=== PATIENT | female | born 1950 ===

== ENCOUNTER 2017-10-24 23:58 | Emergency (ER) | payer MEDICARE, SELFPAY ==
[2017-10-25 00:06] VITALS: BMI 25.7
[2017-10-25 00:19] VITALS: RESP 18
--- NOTE | 2017-10-25 00:23 | ED PDOC ---
Arrival/HPI - General Chief Complaint: Shortness Of Breath Time Seen by Provider: 10/25/17 00:16 Historian: Patient - History of Present Illness Narrative History of Present Illness (Text): 10/25/17 00:23 Christelle Pearson is a 67 year old female, with no significant past medical history , who presents to the Emergency department accompanied by relative complaining of shortness of breath and dry cough. Patient states, as per relative acting as [employer]oured [employer] officer, she has been experiencing shortness of breath with associated dry cough, bilateral rib/chest discomfort secondary to coughing, and headache. Patient notes a subjective fever and states she took cough syrup at home with no significant relief. Patient denies any abdominal pain, nausea, vomiting, diarrhea, urinary symptoms, back pain, neck pain, dizziness, or any other complaints. Symptom Onset: Gradual Symptom Course: Unchanged Activities at Onset: Light Context: Home Past Medical History - Provider Review Nursing Documentation Reviewed: Yes - Past Medical History Past Medical History: No Previous - Psychiatric Hx Depression: No Hx Emotional Abuse: No Hx Physical Abuse: No Hx Substance Use: No - Surgical History Hx Hysterectomy: Yes - Suicidal Assessment Feels Threatened In Home Enviroment: No Family/Social History - Physician Review Nursing Documentation Reviewed: Yes Family/Social History: Unknown Family HX Hx Alcohol Use: No Hx Substance Use: No Hx Substance Use Treatment: No Allergies/Home Meds Allergies/Adverse Reactions: Allergies No Known Allergies Allergy (Verified 04/22/12 11:11) Review of Systems - Physician Review All systems were reviewed & negative as marked: Yes - Review of Systems Constitutional: Fevers (+subjective fever) Eyes: Normal ENT: Normal Respiratory: SOB, Cough Cardiovascular: Chest Pain (+bilateral rib/chest discomfort) Gastrointestinal: Normal. absent: Abdominal Pain, Diarrhea, Nausea, Vomiting Genitourinary Female: Normal. absent: Dysuria, Frequency, Hematuria, Urine Output Changes Musculoskeletal: Normal. absent: Back Pain, Neck Pain Skin: Normal. absent: Rash Neurological: Headache. absent: Dizziness Endocrine: Normal Hemo/Lymphatic: Normal Psychiatric: Normal Physical Exam Vital Signs Reviewed: Yes Vital Signs Temp Pulse Resp BP Pulse Ox 10/25/17 04:10 98.7 F 85 18 121/79 100 10/25/17 00:17 99.4 F 84 18 110/76 97 10/25/17 00:15 18 98 Temperature: Afebrile Blood Pressure: Normal Pulse: Regular Respiratory Rate: Normal Appearance: Positive for: Well-Appearing, Non-Toxic, Comfortable Pain Distress: None Mental Status: Positive for: Alert and Oriented X 3 - Systems Exam Head: Present: Atraumatic, Normocephalic Pupils: Present: PERRL Extroacular Muscles: Present: EOMI Conjunctiva: Present: Normal Mouth: Present: Moist Mucous Membranes Neck: Present: Normal Range of Motion Respiratory/Chest: Present: Clear to Auscultation, Good Air Exchange. No: Respiratory Distress, Accessory Muscle Use Cardiovascular: Present: Regular Rate and Rhythm, Normal S1, S2. No: Murmurs Abdomen: No: Tenderness, Distention, Peritoneal Signs Back: Present: Normal Inspection Upper Extremity: Present: Normal Inspection. No: Cyanosis, Edema Lower Extremity: Present: Normal Inspection. No: Edema Neurological: Present: GCS=15, CN II-XII Intact, Speech Normal Skin: Present: Warm, Dry, Normal Color. No: Rashes Psychiatric: Present: Alert, Oriented x 3, Normal Insight, Normal Concentration Medical Decision Making ED Course and Treatment: 10/25/17 00:23 Impression: 67 year old female c/o shortness of breath, dry cough, bilateral rib/chest discomfort, headache, and subjective fever. Differential Diagnosis include but are not limited to: bronchitis Plan: -- EKG -- Chest X-Ray -- Labs, cardiac enzymes -- reassess and disposition Progress Notes: Reviewed EKG, NSR at 74. Non-specific T wave changes. 10/25/17 02:42 Reviewed Chest X-Ray, shows no acute processes. 10/25/17 03:30 On re-evaluation, patient feels better and is in no acute distress. I have discussed the results and plan with the patient, who expresses understanding. Patient in agreement with plan to be discharged home. Patient is stable for discharge. Patient was instructed to follow up with physician or return if symptoms worsen or new concerning symptoms arise. - Lab Interpretations Lab Results: 10/25/17 01:00 10/25/17 01:00 Lab Results 10/25/17 01:00: PT 12.6 H, INR 1.10, APTT 28.7 10/25/17 01:00: WBC 5.5, RBC 4.37, Hgb 12.6, Hct 37.8, MCV 86.5, MCH 28.8, MCHC 33.3, RDW 12.5, Plt Count 239, MPV 9.9 10/25/17 01:00: Sodium 137, Potassium 4.3, Chloride 103, Carbon Dioxide 24, Anion Gap 14, BUN 8, Creatinine 0.6 L, Est GFR ( Amer) > 60, Est GFR (Non -Af Amer) > 60, Random Glucose 121 H, Calcium 8.7, Total Bilirubin 1.0, AST 65 H D, ALT 42, Alkaline Phosphatase 95, Lactate Dehydrogenase 477, Total Creatine Kinase 44, Troponin I < 0.01, Total Protein 8.0, Albumin 4.2, Globulin 3.9, Albumin/Globulin Ratio 1.1 - RAD Interpretation Radiology Orders: 10/25/17 00:24 CHEST PORTABLE [RAD] Stat - EKG Interpretation Interpreted by ED Physician: Yes Type: 12 lead EKG - Medication Orders Current Medication Orders: Discontinued Medications Acetaminophen (Tylenol 325mg Tab) 650 mg PO STAT STA Stop: 10/25/17 03:20 Last Admin: 10/25/17 03:44 Dose: 650 mg MAR Pain/Vitals Document 10/25/17 03:44 AD (Rec: 10/25/17 03:44 AD [id number]) Pain Reassessment Is This A Pain ReAssessment? No Presence of Pain Presence of Pain Yes Location Pain Location Body Music Therapist Intensity 8 Pain Behavior Facial Grimacing Azithromycin (Zithromax) 500 mg PO ONCE STA PRN Reason: Protocol Stop: 10/25/17 03:20 Last Admin: 10/25/17 03:45 Dose: 500 mg - Arnaudibclaudia Statement The provider has reviewed the documentation as recorded by the James Nelson All medical record entries made by the James were at my direction and personally dictated by me. I have reviewed the chart and agree that the record accurately reflects my personal performance of the history, physical exam, medical decision making, and the department course for this patient. I have also personally directed, reviewed, and agree with the discharge instructions and disposition. Disposition/Present on Arrival - Present on Arrival Any Indicators Present on Arrival: No History of DVT/PE: No History of Uncontrolled Diabetes: No Urinary Catheter: No History of Decub. Ulcer: No History Surgical Site Infection Following: None - Disposition Have Diagnosis and Disposition been Completed?: Yes Diagnosis: Bronchitis, Headache Disposition: HOME/ ROUTINE Disposition Time: 03:31 Patient Plan: Discharge Condition: STABLE Discharge Instructions (ExitCare): Acute Bronchitis, Adult (DC), Tension Headache (DC) Additional Instructions: Take meds as prescribed/follow up with your doctor this week Prescriptions: Acetaminophen/Butalbital/Caf [Fioricet] 1 tab PO Q6 PRN #16 tab PRN Reason: Headache Azithromycin [Zithromax] 250 mg PO DAILY #6 tab Forms: [employer] ([place]ani)
[2017-10-25 01:19] LABS: HEMOGLOBIN 12.6 g/dL (12.0-16.0); MEAN CELL VOLUME 86.5 fl (80.0-105.0); MEAN CORPUSCULAR HEMOGLOBIN 28.8 pg (25.0-35.0); MEAN CORPUSCULAR HGB CONC 33.3 g/dl (31.0-37.0); MEAN PLATELET VOLUME 9.9 fl (7.0-11.0); RBC 4.37 10^6/uL (3.5-6.1); RED CELL DISTRIBUTION WIDTH 12.5 % (11.5-14.5); WHITE BLOOD COUNT 5.5 10^3/ul (4.5-11.0)
[2017-10-25 01:22] LABS: INR 1.1; PARTIAL THROMBOPLASTIN TIME 28.7 Seconds (25.1-36.5); PROTHROMBIN TIME 12.6 SECONDS (9.4-12.5)
[2017-10-25 01:27] LABS: ALB/GLOB RATIO 1.1 (1.1-1.8); ALBUMIN 4.2 g/dL (3.0-4.8); ALT/SGPT 42 U/L (7-56); AST/SGOT 65 U/L (14-36); BLOOD UREA NITROGEN 8 mg/dL (7-21); CALCIUM 8.7 mg/dL (8.4-10.5); GFR NON-AFRICAN AMERICAN > 60
[2017-10-25 01:38] LABS: TROPONIN I < 0.01 ng/mL
[2017-10-25 04:16] VITALS: BP 121/79; PULSE 85; TEMP 98.7; O2SAT 100
--- NOTE | 2017-10-25 09:23 | RAD ---
Date of service: 10/25/2017 HISTORY: Shortness of breath COMPARISON: No prior. FINDINGS: LUNGS: The lungs are well inflated and clear. PLEURA: No significant pleural effusion identified, no pneumothorax apparent. CARDIOVASCULAR: Normal. OSSEOUS STRUCTURES: No significant abnormalities. VISUALIZED UPPER ABDOMEN: Normal. OTHER FINDINGS: None. IMPRESSION: No active pulmonary disease.
--- NOTE | 2017-10-25 21:26 | CARD ---
APPROVED REPORT Date of service: 10/25/2017 EKG Measurement Heart [id number] [id number] [id number] <Conclusion> Normal sinus rhythm Nonspecific T wave abnormality Abnormal ECG
== END 2017-10-25 04:10 | disposition home or self-care (01) ==
LOC: ED 23:58
DX: J40 Bronchitis, not specified as acute or chronic (principal); R51 Headache